=== PATIENT | male | born 1955 | race Caucasian/White ===

== ENCOUNTER → 2016-10-23 | Outpatient (CLI) | payer MEDICAID ==
[~2016-10-23] MED LIST: ALBU0.63 AEROSOL; FOLI1TAB15 PO; HYDR-4246 PO
--- NOTE | 2016-10-23 13:00 | DI ---
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 Coronal and sagittal two-dimensional reformats. Automated Exposure Control and Iterative Reconstruction dose reducing techniques were utilized. Findings: Chest: Stable spiculated left upper lobe mass. Semisolid and groundglass type nodules in the right upper lobe are also unchanged measuring 9 to 10 mm in size. Groundglass nodules in the superior segment right lower lobe are also stable. No consolidative pneumonia, pleural effusion or pneumothorax. No new pulmonary nodule or mass. The central airways are patent. Surgical clips in the left hilar area. No axillary or mediastinal adenopathy. Heart size is stable. No pericardial effusion. Abdomen/pelvis: The unenhanced contours of the liver are unremarkable. The gallbladder, spleen, pancreas and adrenal glands are normal. Horseshoe kidney. No abdominal or pelvic lymphadenopathy. Bladder is normal. No free fluid. No evidence of a bowel obstruction. Bone windows show degenerative changes in the spine. Impression: Stable exam without evidence of new or worsening metastatic disease. .
== END ==
LOC: IMA 09:01
PROVIDERS: ATTEND Internal Medicine Hematology & Oncology
DX: C34.12 Malignant neoplasm of upper lobe, left bronchus or lung (principal); J44.9 Chronic obstructive pulmonary disease, unspecified

== ENCOUNTER → 2016-10-30 | Outpatient (CLI) | payer MEDICAID ==
[2016-10-30 09:16] LABS: BASOPHILS # (AUTO) 0.1 T/MM3 (0-0.2); BASOPHILS % (AUTO) 0.5 % (0-2); EOSINOPHILS # (AUTO) 0.5 T/MM3 (0-0.5); EOSINOPHILS % (AUTO) 4.2 % (0-4); IMMATURE GRANULOCYTE # (AUTO) 0.07 T/MM3 (0.00-0.03); IMMATURE GRANULOCYTE % (AUTO) 0.6 % (0.0-0.5); LYMPHOCYTES % (AUTO) 16.5 % (23-45); MEAN CORPUSCULAR HGB 29.2 UUG (26-34); MEAN CORPUSCULAR HGB CONC(MCHC 32.5 GM/DL (31-37); MEAN CORPUSCULAR VOLUME 89.9 UM3 (80-100); MEAN PLATELET VOLUME 9.1 UM3 (9.4-12.4); MONOCYTES # (AUTO) 0.9 T/MM3 (0-0.8); MONOCYTES % (AUTO) 7.5 % (0-9.0); NEUTROPHILS #(AUTO)-ABSOLUTE 8.3 T/MM3 (1.8-7.7); NEUTROPHILS % (AUTO) 70.7 % (33-66); RED BLOOD COUNT 4.45 M/MM3 (4.50-5.90); WBC - WHITE BLOOD COUNT 11.8 T/MM3 (4.5-11.0)
[2016-10-30 09:26] LABS: ALBUMIN 4.2 G/DL (3.5-5.0); ALBUMIN/GLOBULIN RATIO 1.5 RATIO (1.1-2.2); ALKALINE PHOSPHATASE 118 U/L (38-126); ALT (SGPT) 27 U/L (21-72); ANION GAP 13 MEQ/L (5-15); AST (SGOT) 24 U/L (17-59); BUN/CREATININE RATIO 14 RATIO (6-26); CALCIUM 9.3 MG/DL (8.4-10.2); CHLORIDE 107 MEQ/L (98-107); CO2 - CARBON DIOXIDE 26 MEQ/L (22-30); CREATININE 0.8 MG/DL (0.8-1.5); GLOMERULAR FILTRATION RATE 99; GLUCOSE 130 MG/DL (75-110); LDH 419 U/L (313-618); MAGNESIUM 2.2 MG/DL (1.6-2.3); POTASSIUM 3.7 MEQ/L (3.6-5); SODIUM 146 MEQ/L (134-144)
== END ==
LOC: LAB 08:55
PROVIDERS: ATTEND Internal Medicine Hematology & Oncology
DX: C34.12 Malignant neoplasm of upper lobe, left bronchus or lung (principal); J44.9 Chronic obstructive pulmonary disease, unspecified
CPT/HCPCS: 36415; 80053; 82378; 83615; 83735; 85025